=== PATIENT | male | born 2000 | race Caucasian/White ===

== ENCOUNTER 2022-04-19 07:18 | Emergency (ER) | payer OTHER ==
[~2022-04-19] VITALS: Ht 180.3 cm; Wt 91.6 kg
[2022-04-19 07:19] VITALS: BP 131/62
[2022-04-19] MEDS ORDERED: CYCL-707 PO (07:26)
[2022-04-19] MEDS ORDERED: [UNRECOGNIZED DRUG - CODE] IJ (07:26)
[2022-04-19] MEDS ORDERED: ACETAMINOPHEN 500 MG TAB PO ONE (09:20)
[2022-04-19] MEDS ORDERED: diazePAM 5MG TABLET PO ONE (09:20)
[2022-04-19] MEDS ORDERED: KETOROLAC 30 MG/ML 1ML VIAL IM ONE (09:20)
[2022-04-19] MEDS ORDERED: METH-1164 PO (09:57)
[2022-04-19] MEDS ORDERED: MEDR4PAK PO (09:57)
== END 2022-04-19 10:22 | disposition home or self-care (01) ==
LOC: M ED 07:18
DX: S39.012A Strain of muscle, fascia and tendon of lower back, initial encounter (principal); X50.0XXA Overexertion from strenuous movement or load, initial encounter; Z79.899 Other long term (current) drug therapy
CPT/HCPCS: 72110; 96372; 99282; J1885

== ENCOUNTER → 2022-09-28 | Outpatient (CLI) | payer OTHER ==
[~2022-09-28] MED LIST: CYCL-707 PO; MEDR4PAK PO; METH-1164 PO; [UNRECOGNIZED DRUG - CODE] IJ
== END ==
LOC: M PLAIMG 12:43
PROVIDERS: ATTEND Physician Assistant
DX: R19.05 Periumbilic swelling, mass or lump (principal); R59.9 Enlarged lymph nodes, unspecified

== ENCOUNTER 2023-01-02 16:41 | Emergency (ER) | payer OTHER ==
[~2023-01-02] VITALS: Ht 182.9 cm; Wt 96.7 kg
[2023-01-02 16:42] VITALS: TEMP 97.7
[2023-01-02 19:41] VITALS: BP 122/78; O2SAT 100
[2023-01-02] MEDS ORDERED: ISOVUE-370 76% 100ML VIAL As Ordered ONE (20:31)
== END 2023-01-02 22:00 | disposition home or self-care (01) ==
LOC: M ED 16:41
DX: R10.31 Right lower quadrant pain (principal); G89.18 Other acute postprocedural pain
CPT/HCPCS: 36415; 74177; 80047; 99284; Q9967